=== PATIENT | female | born 1990 | race Caucasian/White ===

== ENCOUNTER 2017-03-08 12:17 | Emergency (ER) | payer OTHER, BC ==
[~2017-03-08] VITALS: Ht 172.7 cm; Wt 98.0 kg
[2017-03-08 12:22] VITALS: BP 122/77; PULSE 104; RESP 20; TEMP 98.7; O2SAT 99
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
[2017-03-08] MEDS ORDERED: ACETAMINOPHEN 500 MG CPLT PO ONE (12:45)
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
== END 2017-03-08 14:26 | disposition home or self-care (01) ==
LOC: NEPD 12:17
DX: S16.1XXA Strain of muscle, fascia and tendon at neck level, initial encounter (principal); V49.59XA Passenger injured in collision with other motor vehicles in traffic accident, initial encounter; Y92.411 Interstate highway as the place of occurrence of the external cause
CPT/HCPCS: 72125; 99284